=== PATIENT | male | born 1955 | race African-American/Black ===

== ENCOUNTER 2020-06-05 23:59 | Emergency (ER) | payer MEDICARE, OTHER ==
[~2020-06-05] VITALS: Ht 182.9 cm; Wt 147.4 kg
[2020-06-06] MEDS ORDERED: HYDROmorphone 1mg/ml Carpuject IVP ONE (00:15)
--- NOTE | 2020-06-06 00:18 | Emergency Room Report ---
History of Present Illness General Chief Complaint: Lower Extremity Injury Source: Patient, Medical Record, EMS Present Illness HPI This is a 65-year-old male with a history morbid obesity, chronic lymphedema of lower extremities, cellulitis, diabetes who presents with chief complaint of left knee pain. Has been a chronic problem and he is taking Percocet at the [facility]. He came in today because been hurting more. Now he said is more swollen. No fever chills but no nausea no vomiting. No relief with his pain medication. No trauma. Worse with walking. Better with rest. Allergies: Coded Allergies: CODEINE (Verified Allergy, Unknown, 06/06/20) ORANGE (Verified Allergy, Unknown, 06/06/20) COVID-19 Screening Contact w/high risk pt: No Experienced COVID-19 symptoms?: No COVID-19 Testing performed [employer]: Yes COVID-19 Screening: Negative COVID-19 COVID-19 Testing Source: [facility] 04/2020 Patient History Past Medical History: see triage record, old chart reviewed, DM, HTN Past Surgical History: other Pertinent Family History: none Social History: Denies: smoking Immunizations: other Reviewed Nursing Documentation: PMH: Agreed; PSxH: Agreed Nursing Documentation-PMH Hx Hypertension: Yes Hx COPD: Yes - bronchitis Hx Diabetes: Yes - type II Review of Systems Eye: Denies: eye pain, blurred vision ENT: Denies: ear pain, nose congestion, throat swelling Respiratory: Denies: cough, shortness of breath Cardiovascular: Denies: chest pain, palpitations Gastrointestinal: Denies: abdominal pain, diarrhea, nausea, vomiting Musculoskeletal: Reports: joint pain; Denies: back pain Skin: Denies: rash Neurological: Denies: headache, numbness Endocrine: Denies: increased thirst, increased urine Hematologic/Lymphatic: Denies: easy bruising All Other Systems: negative except mentioned in HPI Physical Exam Vital Signs Date Time Temp Pulse Resp B/P (MAP) Pulse Ox O2 Delivery O2 Flow Rate FiO2 06/06/20 00:05 98.2 92 18 144/86 (105) 92 Room Air Vitals unremarkable Sp02 EP Interpretation: reviewed, normal General Appearance: well appearing, no apparent distress, alert, obese Head: normocephalic, atraumatic Eyes: bilateral eye PERRL, bilateral eye EOMI ENT: hearing grossly normal, normal pharynx Neck: full range of motion, supple, no meningismus Respiratory: chest non-tender, lungs clear, normal breath sounds Cardiovascular #1: regular rate, rhythm, no murmur Gastrointestinal: normal bowel sounds, non tender, no mass, no organomegaly, no bruit, non-distended Musculoskeletal: back normal, normal range of motion, other - Left knee: Mild edema and redness. Mild warmth. Tender to palpation. Bilateral lower extremity with chronic lymphedema. Psychiatric: mood/affect normal Medical Decision Making Diagnostic Impression: Primary Impression: Gouty arthritis of left knee Additional Impressions: Osteoarthritis of left knee Qualified Codes: M17.12 - Unilateral primary osteoarthritis, left knee Morbid obesity with BMI of 40.0-44.9, adult ER Course This patient presents with left knee pain. He has mild erythema and inflammat ory changes. Because of the elevated uric acid, this is more likely to be gout rather than infectious process. He felt better now. Because of his renal insufficiency, will treat with colchicine. No evidence of septic joint. Patient said that he wants to go back to the [facility] because he does not want to be in quarantine for 14 days if he get admitted to the hospital. He said that if things do not improve, he will come back. Other X-Ray Diagnostic Results Other X-Ray Diagnostic Results : X-Ray ordered: Knee x-rays, left # of Views/Limited Vs Complete: 4 View Indication: Pain EP Interpretation: Yes Interpretation: no dislocation, no soft tissue swelling, no fractures, other - Severe osteoarthritic changes Impression: Other - Osteoarthritis Electronically Signed by: Arsh Lares MD Last Vital Signs Date Time Temp Pulse Resp B/P (MAP) Pulse Ox O2 Delivery O2 Flow Rate FiO2 06/06/20 00:05 98.2 92 18 144/86 (105) 92 Room Air Status: improved Disposition: SNF Condition: Stable Scripts Colchicine (Colchicine) 0.6 Mg Capsule 0.6 MG PO TID, #30 CAP Prov: Arsh Lares MD 06/06/20 Oxycodone/Acetaminophen 5-325* (PERCOCET 5-325 MG TABLET*) 1 Each Tablet 1 TAB ORAL Q6H PRN for For Pain, #20 TAB Prov: Arsh Lares MD 06/06/20 Additional Instructions: Elevate leg. Follow-up with your doctor in 3 to 7 days. Return if symptoms worsen. Arsh Lares MD Jun 06, 2020 00:18
[2020-06-06 00:51] LABS: BASOPHILS % (AUTO) 3.3 % (0.0-2.0); EOSINOPHILS % (AUTO) 3.5 % (0.0-3.0); HEMATOCRIT 28.1 % (42.0-52.0); HEMOGLOBIN 9.4 G/DL (14.2-18.0); MEAN CORPUSCULAR VOLUME 81 FL (80-99); MONOCYTES % (AUTO) 10.2 % (1.0-10.0); NEUTROPHILS % (AUTO) 62.1 % (45.0-75.0); PLATELET COUNT 184 K/UL (150-450); RED BLOOD COUNT 3.47 M/UL (4.70-6.10); RED CELL DISTRIBUTION WIDTH 15.7 % (11.6-14.8); WHITE BLOOD COUNT 8.8 K/UL (4.8-10.8)
[2020-06-06 00:59] LABS: CALCIUM 8.6 MG/DL (8.5-10.1); CREATININE 1.8 MG/DL (0.55-1.30); POTASSIUM 5.1 MMOL/L (3.5-5.1)
[2020-06-06 01:03] LABS: ALBUMIN 2.5 G/DL (3.4-5.0); ALBUMIN/GLOBULIN RATIO 0.4 (1.0-2.7); BILIRUBIN,TOTAL 0.4 MG/DL (0.2-1.0)
[2020-06-06 01:42] LABS: APPEARANCE,URINE CLEAR; BILIRUBIN, URINE NEGATIVE (NEGATIVE); COLOR,URINE PALE YELLOW; GLUCOSE, URINE (UA) NEGATIVE (NEGATIVE); KETONES,URINE NEGATIVE (NEGATIVE); LEUKOCYTE ESTERASE ,URINE NEGATIVE (NEGATIVE); NITRITE,URINE NEGATIVE (NEGATIVE); PH,URINE 6 (4.5-8.0); PROTEIN,URINE NEGATIVE (NEGATIVE); UROBILINOGEN,URINE NORMAL MG/DL (0.0-1.0)
[2020-06-06] MEDS ORDERED: PERCOCET 5-3251 EACH ORAL (01:43)
[2020-06-06] MEDS ORDERED: COLCHICINE0.6 M1 PO (01:43)
[2020-06-06] MEDS ORDERED: Ketorolac 30mg Inj IV ONE (01:45)
[2020-06-06 04:11] VITALS: BP 132/84
--- NOTE | 2020-06-06 14:51 | Diagnostic Imaging Report ---
INDICATION: Knee pain TECHNIQUE: XRAY Knee Compl 4v+ L Multiple views of the left knee were obtained COMPARISON: None FINDINGS: There is severe lateral compartment osteophytosis characterized by bone on bone apposition, subchondral sclerosis, and marginal osteophyte formation. There is moderate patellofemoral and medial compartment osteoarthrosis. There is a small knee joint effusion. Triangular ossific density identified on the lateral view in the suprapatellar soft tissues is noted. There is vascular calcification. IMPRESSION: 1. Suprapatellar triangular ossific density which likely represents overhanging osteophyte or sequelae of prior trauma as opposed to acute fracture fragment. However, if there is continued clinical concern in the setting of trauma, consider further evaluation with CT knee. 2. Severe lateral compartment osteoarthrosis.
== END 2020-06-06 04:28 ==
LOC: EDBD 23:59 → EMR 06-06 00:23
DX: M10.9 Gout, unspecified (principal); M17.12 Unilateral primary osteoarthritis, left knee; E66.01 Morbid (severe) obesity due to excess calories; Z68.41 Body mass index [BMI] 40.0-44.9, adult; E11.9 Type 2 diabetes mellitus without complications; I10 Essential (primary) hypertension; Z88.6 Allergy status to analgesic agent; Z91.018 Allergy to other foods; I89.0 Lymphedema, not elsewhere classified; N28.9 Disorder of kidney and ureter, unspecified
CPT/HCPCS: 36415; 73564; 80053; 81001; 84550; 85025; 85651; 86140; 96374; 96375; 99284; J1170; J1885